=== PATIENT | female | born 1950 | race Caucasian/White ===

== ENCOUNTER 2024-10-20 14:44 | Emergency (ER) | payer MEDICARE, MEDICAID, SELFPAY ==
[2024-10-20 14:45] VITALS: BP 121/82; PULSE 86; RESP 26; TEMP 36.1; O2SAT 96
[2024-10-20 14:48] VITALS: BMI 36.5
--- NOTE | 2024-10-20 15:07 | ED.VIS.GI ---
HPI HPI - GI History of Present Illness Chief Complaint: Abd Pain Informant: patient Narrative Narrative: 74-year-old female has been having periumbilical abdominal pain started gradually 4 days ago, much worse now colicky, associated with nausea and vomiting. Worse about 25 minutes or so after eating. She has melena but states this has been the case for the last year and that is no different than the last 4 days. She is seen no bright red blood per rectum or hematemesis or coffee-ground emesis. 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 She states after her stents were placed she had recurrent pain a week or 2 later and she states the vascular surgeon went back in and she does not know what they did specifically. [facility] Medical History (Updated 10/20/24 @ 18:[address] Pasquale Phillips MD) Fibromyalgia PAD (peripheral artery disease) Home Medications ?Medication ?Instructions ?Recorded ?Last Taken ?Type acetaminophen 500 mg tablet 1,000 mg PO DAILY PRN pain 10/20/24 Unknown History albuterol sulfate 90 mcg/actuation 2 inh inhalation Q4H PRN shortness 10/20/24 Unknown History aerosol inhaler (Ventolin HFA) of breath or wheezing ascorbate calcium (vitamin C) 500 1 g PO DAILY 10/20/24 10/20/24 History mg tablet aspirin 81 mg tablet,delayed 81 mg PO DAILY 10/20/24 10/20/24 History release (Adult Aspirin Regimen) cholecalciferol (vitamin D3) 50 50 mcg PO DAILY 10/20/24 10/20/24 History mcg (2,000 unit) capsule (D3-2000) citalopram 40 mg tablet (Celexa) 40 mg PO DAILY 10/20/24 10/20/24 History clopidogrel 75 mg tablet 75 mg PO DAILY 10/20/24 10/20/24 History cyanocobalamin (vitamin B-12) 100 mcg IM QMONTH 10/20/24 09/07/24 History 1,000 mcg/mL injection solution (Dodex) dicyclomine 20 mg tablet 20 mg PO Q6H PRN PRN abdominal 10/20/24 Unknown Rx discomfort #20 tabs ferrous sulfate 325 mg (65 mg 325 mg PO DAILY 10/20/24 10/20/24 History iron) tablet (Feosol) fluticasone furoate 100 1 inh inhalation DAILY 10/20/24 10/20/24 History mcg-vilanterol 25 mcg/dose inhalation powder (Breo Ellipta) fluticasone propionate 50 1 spray intranasal DAILY PRN 10/20/24 Unknown History mcg/actuation nasal allergy symptoms spray,suspension furosemide 40 mg tablet 40 mg PO DAILY 10/20/24 10/20/24 History gabapentin 300 mg capsule 300 mg PO DAILY 10/20/24 10/20/24 History hyoscyamine sulfate 0.125 mg 0.125 mg PO Q4H PRN abdominal pain 10/20/24 Unknown History sublingual tablet (Levsin/SL) ibuprofen 125 mg-acetaminophen 250 2 tab PO DAILY PRN pain 10/20/24 Unknown History mg tablet (Advil Dual Action) insulin glargine 100 unit/mL (3 36 unit subcut QHS 10/20/24 10/19/24 History mL) subcutaneous pen, sensor losartan 100 mg tablet 100 mg PO DAILY 10/20/24 10/20/24 History metformin 1,000 mg tablet 1,000 mg PO BIDCM 10/20/24 10/20/24 History metoclopramide HCl 5 mg tablet 5 mg PO 4X/DAY 10/20/24 10/20/24 History montelukast 10 mg tablet 10 mg PO DAILY 10/20/24 10/20/24 History nitroglycerin 0.4 mg sublingual 0.4 mg sublingual Q5M 10/20/24 Unknown History tablet (Nitrostat) ondansetron HCl 4 mg tablet 4 mg PO Q6H PRN nausea and vomiting 10/20/24 Unknown History pantoprazole 40 mg tablet,delayed 40 mg PO BID 10/20/24 10/20/24 History release potassium chloride 20 mEq 20 meq PO BID 10/20/24 10/20/24 History tablet,extended release pravastatin 20 mg tablet 20 mg PO DAILY 10/20/24 10/20/24 History ropinirole 2 mg tablet 2 mg PO BID 10/20/24 10/20/24 History ropinirole 5 mg tablet 5 mg PO QHS 10/20/24 10/19/24 History sucralfate 1 gram tablet (Carafate) 1 g PO TID 1 week #21 tabs 10/20/24 Unknown Rx vitamin E 268 mg (400 unit) capsule 268 mg PO DAILY 10/20/24 10/20/24 History Allergy/AdvReac Type Severity Reaction Status Date / Time amoxicillin Allergy Severe Itching Verified 10/20/24 14:53 butorphanol (From Stadol) Allergy Severe Itching Verified 10/20/24 14:53 meperidine (From Demerol) Allergy Severe Itching Verified 10/20/24 14:53 morphine Allergy Severe Itching Verified 10/20/24 14:53 spironolactone Allergy Severe Chest Verified 10/20/24 14:53 tightness chloroquine Allergy Unknown PT UNSURE Verified 10/20/24 14:53 OF REACTION acetaminophen (From Vicodin) AdvReac Severe Itching Verified 10/20/24 14:53 Corticosteroids AdvReac Severe Other Verified 10/20/24 14:53 (Glucocorticoids) doxycycline AdvReac Severe Nausea/Vom/ Verified 10/20/24 14:53 Diarrhea hydrocodone (From Vicodin) AdvReac Severe Itching Verified 10/20/24 14:53 hydromorphone (From Dilaudid) AdvReac Severe Itching Verified 10/20/24 14:53 isoflurane (From Forane) AdvReac Severe Anaphylaxis Verified 10/20/24 14:53 adhesive tape (surgical tape) AdvReac Intermediate Rash Verified 10/20/24 14:53 Surgical History (Updated 10/20/24 @ 15:[address] Pasquale Phillips MD) Previous back surgery History of appendectomy S/P cholecystectomy Tubal ligation status Social History Smoking Status: Never smoker ROS ROS ED Constitutional Constitutional ED: Denies chills or fever(s) Eyes Eyes: Denies change in vision or diplopia ENT ENT ED: Denies rhinorrhea or sore throat Cardiovascular Cardiovascular: Denies chest pain or palpitations Respiratory/Chest Respiratory/Chest: Denies cough or dyspnea Gastrointestinal Gastrointestinal: Reports abdominal pain, diarrhea, melena, nausea and vomiting; Denies hematemesis or hematochezia Genitourinary Genitourinary ED: Denies dysuria or hematuria Musculoskeletal Musculoskeletal: Reports arthralgias; Denies back pain or neck pain Integumentary Denies abscess or rash Neurologic Neurologic: Denies headache(s), paresthesias or weakness Psychiatric Psychiatric: Denies suicidal thoughts EXAM Physical Exam Const Vital Signs: 10/20/24 14:45 10/20/24 16:44 Temperature 96.9 F L Temperature Source Temporal Pulse Rate 86 79 Respiratory Rate 26 H 18 Blood Pressure 121/82 H 122/84 H Blood Pressure Mean 95 96 Pulse Ox 96 98 Oxygen Delivery Method Room Air Room Air Positive well nourished and well developed Constitutional Narrative: Mild painful distress at times General Appearance ED: well developed HEENT Reports moist mucous membranes normocephalic and atraumatic Eyes PERRL and EOMs intact bilaterally Neck full ROM and supple Resp normal respiratory effort and clear to auscultation bilaterally Cardio regular rate, regular rhythm and no murmurs GI non-distended GI Narrative: Periumbilical tenderness, epigastric, right upper quadrant, mild diffuse lower abdominal tenderness. Some voluntary guarding. No rebound. Auscultation: normoactive bowel sounds Palpation: soft Back/Spine no CVA tenderness General Back: other FROM Extremity normal to inspection General Extremety ED: Negative for edema, pulses abnormal or tenderness General Extremity: Negative for edema or pulses abnormal Neuro oriented x3, CN's II-XII intact bilaterally and no sensory deficits noted Sensorium / Orientation: awake and alert Motor Exam: strength 5/5 throughout Psych Mood & Affect: anxious Skin no rashes or lesions noted and no wounds MDM MDM MDM Narrative Medical decision making narrative: Given the patient's history, needing emergent view of flow through the patient's celiac and superior mesenteric arteries. CT angiography of the abdomen/pelvis was obtained, I reviewed the images and the report which I agree with, it is negative for acute thrombosis and the stented areas are widely patent. Additionally there is nothing else acute noted. Her blood counts are good, her Hemoccult is negative and there is no active bleeding or melena on rectal, nor tenderness. She has a couple of external hemorrhoids that are nonthrombosed and nontender and not bleeding. She is on iron pills which hopefully is what is responsible for making her stools black. She states she is already taking pantoprazole, and she also takes a daily metoclopramide, if I do not take it I will vomit up every meal. Unknown if she has been prior diagnosed with gastroparesis or not. At this time, urine is clean, liver enzymes are normal, her lactic acid was nonspecifically elevated but in context of the normal CTA, I do not think this needs to be emergently addressed other than the IV fluids that she already received from us. She is doing much better after analgesics, I believe she stable for discharge home. I am going to add Carafate for a week in addition to dicyclomine to use as needed, she states she has tolerated both those in the past, and advised to follow-up with her doctor who she has. Lab Data Attestation: I reviewed the patient's lab results. Labs: Laboratory Results - last 24 hr 10/20/24 10/20/24 10/20/24 15:27 16:51 17:24 WBC 8.8 RBC 4.16 L Hgb 11.3 L Hct 35.0 L MCV 84.1 MCH 27.2 MCHC 32.3 RDW Std Deviation 43.3 RDW Coeff of Bobby 14.2 Plt Count 387 MPV 9.3 Immature Gran % (Auto) 0.300 Neut % (Auto) 55.8 Lymph % (Auto) 32.5 [place] % (Auto) 8.0 Eos % (Auto) 2.1 Baso % (Auto) 1.3 H Absolute Neuts (auto) 4.9 Absolute Lymphs (auto) 2.85 Nucleated RBC % 0 Sodium 135 Potassium 4.4 Chloride 97 L Carbon Dioxide 23.6 Anion Gap 14 BUN 15 Creatinine 0.73 Estim Creat Clear Calc 69.56 Est GFR (MDRD) Non-Af 87 BUN/Creatinine Ratio 20.7 H Glucose 104 H Lactic Acid 3.2 H* Calcium 10.2 Total Bilirubin 0.24 AST 19 ALT 11 Alkaline Phosphatase 67 Total Protein 7.2 Albumin 4.3 Globulin 2.9 Albumin/Globulin Ratio 1.5 Lipase 39 Urine Color Yellow Urine Clarity Clear Urine pH 6.0 Ur Specific [place] 1.010 Urine Protein 15 H Urine Glucose (UA) 100 H Urine Ketones Negative Urine Occult Blood Negative Urine Nitrite Negative Urine Bilirubin Negative Urine Urobilinogen Normal Ur Leukocyte Esterase 25 H Urine RBC 0 SEEN Urine WBC 0-5 SEEN Ur Squamous Epith Cells 0-5 SEEN Urine Bacteria 0 SEEN Urine Mucus 0 SEEN POC Glucose 91 Blood Type A NEGATIVE Antibody Screen NEGATIVE Radiography Diagnostic Testing: Clinical Impression(s) from Imaging Studies Abdomen/Pelvis CTA 10/20/24 15:50 IMPRESSION: 1. No evidence of hemodynamically significant stenosis or occlusion. 2. Widely patent celiac trunk and SMA with prior stenting. Mild narrowing of the BRENT at its origin. 3. No acute abdominopelvic finding. Reading Location: [facility] Discharge Plan Triage Chief Complaint: Abd Pain ED Provider: Pasquale Phillips Dx/Rx/DC Orders Clinical Impression: Abdominal pain, acute, periumbilical Instructions: Abdominal Pain, ED Gastritis Ulcer No Abx Prescriptions: New sucralfate [Carafate] 1 gram tablet 1 g PO TID 7 Days Qty: 21 0RF dicyclomine 20 mg tablet 20 mg PO Q6H PRN PRN (Reason: abdominal discomfort) Qty: 20 0RF No Action albuterol sulfate [Ventolin HFA] 90 mcg/actuation HFA aerosol inhaler 2 inh inhalation Q4H PRN (Reason: shortness of breath or wheezing) ascorbate calcium (vitamin C) 500 mg tablet 1 g PO DAILY cholecalciferol (vitamin D3) [D3-2000] 50 mcg (2,000 unit) capsule 50 mcg PO DAILY aspirin [Adult Aspirin Regimen] 81 mg tablet,delayed release (DR/EC) 81 mg PO DAILY citalopram [Celexa] 40 mg tablet 40 mg PO DAILY clopidogrel 75 mg tablet 75 mg PO DAILY cyanocobalamin (vitamin B-12) [Dodex] 1,000 mcg/mL solution 100 mcg IM QMONTH Patient Comments: PT STATES LAST INJECTION WAS OVER A MONTH. ROUGHLY END OR AUGUST ferrous sulfate [Feosol] 325 mg (65 mg iron) tablet 325 mg PO DAILY fluticasone propionate 50 mcg/actuation spray,suspension 1 spray intranasal DAILY PRN (Reason: allergy symptoms) Rx Instructions: administer into each nostril fluticasone furoate-vilanterol [Breo Ellipta] 100-25 mcg/dose blister with device 1 inh inhalation DAILY furosemide 40 mg tablet 40 mg PO DAILY gabapentin 300 mg capsule 300 mg PO DAILY hyoscyamine sulfate [Levsin/SL] 0.125 mg tablet, sublingual 0.125 mg PO Q4H PRN (Reason: abdominal pain) insulin glargine 100 unit/mL (3 mL) insulin pen, sensor 36 unit subcut QHS losartan 100 mg tablet 100 mg PO DAILY metformin 1,000 mg tablet 1,000 mg PO BIDCM metoclopramide HCl 5 mg tablet 5 mg PO 4X/DAY Rx Instructions: TAKE BEFORE MEALS AND AT BEDTIME montelukast 10 mg tablet 10 mg PO DAILY nitroglycerin [Nitrostat] 0.4 mg tablet, sublingual 0.4 mg sublingual Q5M Rx Instructions: do not exceed 3 doses per episode ondansetron HCl 4 mg tablet 4 mg PO Q6H PRN (Reason: nausea and vomiting) pantoprazole 40 mg tablet,delayed release (DR/EC) 40 mg PO BID potassium chloride 20 mEq tablet extended release 20 meq PO BID pravastatin 20 mg tablet 20 mg PO DAILY ropinirole 5 mg tablet 5 mg PO QHS Patient Comments: PT TAKES 2 MG BID ALONG WITH THE 5MG AT BEDTIME. ropinirole 2 mg tablet 2 mg PO BID Patient Comments: PT TAKES 2 MG BID ALONG WITH THE 5MG AT BEDTIME. vitamin E 268 mg (400 unit) capsule 268 mg PO DAILY acetaminophen 500 mg tablet 1,000 mg PO DAILY PRN (Reason: pain) ibuprofen-acetaminophen [Advil Dual Action] 125-250 mg tablet 2 tab PO DAILY PRN (Reason: pain) Primary Care Provider: Care Physician,No Primary Referrals: Doctor,Your [Non-Staff] - As soon as possible Print Language: [place] Disposition Disposition: Home, Self Care
[2024-10-20] MEDS: Ondansetron 4 MG/2 ML Vial IV (15:22)
[2024-10-20] MEDS: fentaNYL 100 MCG/2 ML Ampul 50 MCG IV (15:22)
[2024-10-20] MEDS: 0.9% Normal Saline (1000mL) 1,000 ML 999 ML IV (15:22)
[2024-10-20 15:40] LABS: Absolute Lymphocyte Count 2.85 X10^3/uL (0.83-4.51); Absolute Neutrophil Count 4.9 X10^3/uL (2.0-7.7); Basophil# 0.11 X10^3/uL; Basophil% 1.3 % (0-1); Eosinophil# 0.18 X10^3/uL; Eosinophils% 2.1 % (0-5); Hemoglobin 11.3 g/dL (12.0-15.0); Lymphocyte # 2.85 X10^3/ul (0.83-4.51); Lymphocyte % 32.5 % (19-41); Mean Corp Hgb Conc 32.3 g/dL (32-36); Mean Corpuscular Hgb 27.2 pg (27.0-32.0); Mean Corpuscular Volume 84.1 fL (81-99); Mean Platelet Vol. 9.3 fl (6.2-12.0); NRBC Flagged by Analyzer 0 % (0-5); Neutrophil # 4.91 X10^3/uL (2.7-7.7); Neutrophil % 55.8 % (47-70); Platelet Count 387 K/mm3 (150-450); RBC Distribution Width CV 14.2 % (11.6-14.6); RBC Distribution Width SD 43.3 fl (35.1-43.9); Red Blood Count 4.16 M/mm3 (4.2-5.4); White Blood Count 8.8 K/mm3 (4.4-11.0)
--- NOTE | 2024-10-20 15:50 | CT_ITS ---
PROCEDURE: CTA ABD/PELVIS W/WO CONTRAST 10/20/2024 REASON FOR EXAM: SEVERE MID-ABD PAIN, HX CELIAC/SMA STENTS TECHNIQUE: CTA imaging of the abdomen and pelvis with intravenous contrast. Multiplanar and multisequence images were obtained. CONTRAST: Isovue 370 VOLUME: 100 mL One or more dose reduction techniques were used (e.g., Automated exposure control, adjustment of the mA and/or kV according to patient size, use of iterative reconstruction technique). RADIATION DOSE SUMMARY: CTDlvol: 50 mGy DLP: 1200 mGycm COMPARISON: None. FINDINGS: Lung bases: Bibasilar atelectasis. The heart is normal in size. Liver: The liver is normal in size without arterially enhancing mass. No biliary ductal dilation. Gallbladder: Prior cholecystectomy. Spleen: Normal size. Pancreas: Unremarkable. Adrenals: No adrenal mass. Kidneys: No hydronephrosis or nephrolithiasis. Bladder: The urinary bladder is distended and unremarkable. Reproductive Organs: The uterine size and contour is age-appropriate. Ovaries are unremarkable. Bowel: The bowel loops are nondilated. No ascites or pneumoperitoneum. Prior appendectomy. Lymph nodes: No suspicious lymphadenopathy. Bones: Prior posterior instrumentation and spinal fixation of the L4-S1 vertebral bodies with interbody disc spacers. Thoracolumbar spondylosis. Small fat containing umbilical hernia. Vasculature: The abdominal aorta is normal caliber with mild mixed atherosclerotic plaque. Prior stenting of the celiac trunk and SMA, which appear patent. Calcific plaque of the BRENT resulting in mild focal narrowing at its origin. The single paired renal arteries are patent with mild calcific plaque at their origins. Mild mixed atherosclerotic plaque of the bilateral common iliac arteries without aneurysm or narrowing. The bilateral internal and external iliac arteries are widely patent. CT/CTA Abd/Pelvis W/WO Contrast IMPRESSION: 1. No evidence of hemodynamically significant stenosis or occlusion. 2. Widely patent celiac trunk and SMA with prior stenting. Mild narrowing of t he BRENT at its origin. 3. No acute abdominopelvic finding. Reading Location: [facility]
[2024-10-20 16:03] LABS: ALB/GLOB Ratio 1.5 RATIO (0.9-2.4); AST(SGOT) 19 U/L (<=31); Alanine Aminotransfer ALT/SGPT 11 U/L (<=34); Albumin, Serum 4.3 g/dL (3.4-4.8); Alkaline Phosphatase 67 U/L (35-104); Anion Gap 14 (5-15); BUN 15 mg/dL (4-19); BUN/Creat Ratio 20.7 RATIO (10-20); Calcium,Total 10.2 mg/dL (7.6-11.0); Carbon Dioxide 23.6 mmol/L (21.0-32.0); Chloride 97 mmol/L (98-108); Creatinine, Serum 0.73 mg/dL (0.70-1.20); EST Glomerular Filtration Rate 87 (>60); Estimated Creatinine Clearance 69.56 ml/min (50-250); Globulin 2.9 g/dL (2.2-4.2); Glucose 104 mg/dL (70-99); Lipase 39 U/L (13-75); Potassium 4.4 mmol/L (3.3-5.1); Protein, Total 7.2 g/dL (5.9-8.4); Sodium Level 135 mmol/L (133-145); Total Bilirubin 0.24 mg/dL (0.00-1.30)
[2024-10-20 16:13] LABS: Lactic Acid 3.2 mmol/L (0.0-2.0)
[2024-10-20 16:44] VITALS: BP 122/84; PULSE 79; RESP 18; O2SAT 98
[2024-10-20 16:58] LABS: Bacteria 0 SEEN /hpf (None Seen); Mucous, Urine 0 SEEN /hpf (<or=2+); Red Blood Cells-Urine 0 SEEN /hpf (0-5)
[2024-10-20 17:19] LABS: Color, Urine Yellow (Yellow); Glucose, Dipstick 100 mg/dl (Normal); Ketone-Dipstick Negative (Negative); Leukocyte Esterase-Dipstick 25 /ul (Negative); Nitrite-Dipstick Negative (Negative); Occult Blood-Urine Negative /ul (Negative); Protein-Dipstick 15 mg/dl (Negative); Urine Bilirubin Dipstick Negative (Negative); Urine Clarity Clear (Clear); Urine Urobilinogen Normal (Normal)
[2024-10-20 17:28] LABS: Squamous Epithelial Cells - UA 0-5 SEEN /hpf (5-10); White Blood Cells 0-5 SEEN /hpf (0-5)
[2024-10-20 17:42] LABS: Bedside Glucose 91 mg/dL (74-106)
[2024-10-20 18:00] VITALS: BP 126/88; PULSE 71; RESP 16; O2SAT 99
[2024-10-20 19:35] LABS: Reflex Lactate? Y
== END 2024-10-20 19:11 | disposition home or self-care (01) ==
PROVIDERS: Emergency Provider Emergency Medicine; Referring Provider Emergency Medicine; Visit Provider Emergency Medicine
DX: R10.33 Periumbilical pain (principal); Z79.02 Long term (current) use of antithrombotics/antiplatelets; Z95.5 Presence of coronary angioplasty implant and graft; M79.7 Fibromyalgia; Z79.1 Long term (current) use of non-steroidal anti-inflammatories (NSAID); Z90.49 Acquired absence of other specified parts of digestive tract; Z98.51 Tubal ligation status
CPT/HCPCS: 74174; 80053; 81001; 82274; 82962; 83605; 83690; 85025; 86850; 86900; 86901; 96361; 96374; 96375; 99283; Q9967; A4216; J2405